=== PATIENT | female | born 2000 | race Caucasian/White ===

== ENCOUNTER 2019-06-24 23:41 | Inpatient (IN) ==
[2019-06-25] MEDS ORDERED: cephALEXin 500 MG CAPSULE PO ONE ×2 (00:38→23:48)
[2019-06-25] MEDS ORDERED: Mag Hydrox/Al Hydrox/Simeth 30 ML UDC PO PRN (00:58)
[2019-06-25] MEDS ORDERED: *HR* LORazepam 2 MG/ML VIAL IM PRN (00:58)
[2019-06-25] MEDS ORDERED: Haloperidol Lactate 5 MG/ML VIAL IM PRN (00:58)
[2019-06-25] MEDS ORDERED: Acetaminophen 325 MG TABLET PO PRN (00:58)
[2019-06-25] MEDS ORDERED: Ibuprofen 400 MG TABLET PO PRN (00:58)
[2019-06-25] MEDS ORDERED: *HR* LORazepam 1 MG TABLET PO PRN (00:58)
[2019-06-25] MEDS ORDERED: MOM Conc 10 ML UD.LIQ PO PRN (00:58)
[2019-06-25] MEDS: Nicotine 2 MG GUM BC PRN ×6 (02:14→21:11)
[2019-06-25] MEDS: cephALEXin 500 MG CAPSULE PO SCH ×2 (09:49→21:11)
[2019-06-25] MEDS: hydrOXYzine pamoate 25 MG CAPSULE PO PRN ×2 (11:47→21:11)
[2019-06-25] MEDS: traZODone 50 MG TABLET PO PRN (21:11)
[2019-06-26] MEDS: cephALEXin 500 MG CAPSULE PO SCH ×2 (08:54→20:56)
[2019-06-26] MEDS: Nicotine 2 MG GUM BC PRN ×4 (08:56→19:41)
[2019-06-26] MEDS ORDERED: hydrOXYzine pamoate 25 MG CAPSULE PO PRN (10:47)
[2019-06-26] MEDS: hydrOXYzine pamoate 25 MG CAPSULE PO PRN ×2 (17:39→20:56)
[2019-06-26] MEDS: traZODone 50 MG TABLET PO PRN (20:56)
[2019-06-27] MEDS: cephALEXin 500 MG CAPSULE PO SCH (08:32)
[2019-06-27] MEDS: hydrOXYzine pamoate 25 MG CAPSULE PO PRN (08:33)
[2019-06-27] MEDS: Nicotine 2 MG GUM BC PRN ×2 (09:00→11:15)
[2019-06-27 10:43] VITALS: BP 101/67
== END 2019-06-27 14:25 | disposition home or self-care (01) | DRG 885 ==
LOC: EMEROOARM 23:41 → 1ANU 06-25 00:49
PROVIDERS: ADMIT Psychiatry & Neurology Psychiatry; ATTEND Psychiatry & Neurology Psychiatry